=== PATIENT | female | born 1970 | race Caucasian/White ===

== ENCOUNTER 2017-03-01 13:57 | Emergency (ER) | payer OTHER ==
[2017-03-01] MEDS ORDERED: HYDROCODONE/APAP 5/325 TAB PO ONE (14:18)
[2017-03-01] MEDS ORDERED: TDAP ADULT 0.5 ML INJ (BOOSTRIX) IM ONE (14:18)
--- NOTE | 2017-03-01 14:29 | EDPHY ---
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 The bed fell, striking her on the top of the scalp. She sustained a abrasion versus laceration on top of the scalp. She has a headache in the area of the injury. She has had some dizziness and nausea. No loss of conscious. No neck pain of any kind. No vomiting. Some nausea. No injury anywhere else on her person. Worse with any kind of palpation or movement. No radiating pain. No injury elsewhere. Uncertain when her last tetanus shot was. No other associated complaints or modifying factors. All information and examination were performed with the aid of the [facility] certified Polish hvac manager. REVIEW OF SYSTEMS: Ten systems reviewed and are negative unless otherwise noted in the HPI PAST MEDICAL HISTORY: Denies any medical history other than asthma SOCIAL HISTORY: Nonsmoker. Works at [employer] FAMILY HISTORY: Noncontributory EXAMINATION General Appearance: Alert, no distress Head: normocephalic. No Sorenson sign. No raccoon eyes. There is a hematoma on the top of the scalp with associated abrasion versus laceration. Dried blood obscures the view. Eyes: Pupils equal and round, no conjunctival pallor or injection. EOMs intact. ENT, Mouth: Mucous membranes moist. Airway widely patent Neck: Normal inspection, supple, non-tender. Painless range of motion all planes. No crepitus, step-off or deformity Respiratory: Lungs are clear to auscultation Cardiovascular: Regular rate and rhythm. No murmur Gastrointestinal: Abdomen is soft and nontender Back: non-tender, no bony abnormalities Neurological: A&O, nonfocal, normal gait Skin: Warm and dry, no rash. Abrasion to the top of the scalp over hematoma. No exposure of the galea Extremities: Nontender, no pedal edema Psychiatric: Mood and affect normal DIFFERENTIAL DIAGNOSES: Including but not limited to closed head injury, hematoma, laceration, abrasion , intracranial hemorrhage, skull fracture MDM: 2:20 p.m. Blunt trauma to the head with headache, hematoma, dizziness and nausea. There is a superficial abrasion versus laceration on the top of the scalp. We will irrigate to delineate. I have ordered CT scan of the head given the symptomatic closed headache post trauma. She does not take any blood thinners. She is neuro intact. Tetanus will be updated here in the emergency department 2:45 p.m. Wound has been irrigated and re-evaluated. There is a very superficial, stellate laceration that is 1.5 cm. This does not go through the entire epidermal and dermal layers. Minimal bleeding. No foreign body. I do not feel that this warrants staple repair as I cannot distract the wound margins. 3:30 p.m. Notified by radiologist. CT scan of the head is unremarkable for any acute findings. 3:40 p.m. Patient is feeling well. Minimal headache. No vomiting. No change in vision. Discharged home with wound care instructions. Follow up with worker's compensation [facility]. Tylenol and ibuprofen for pain as needed. Return to ER for worsening pain, vomiting, neck pain SUPERVISION: Patient was evaluated in conjunction with the supervising physician. Please see their note for details. 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 Limitations: No limitations - Personal History LMP (Females 10-55): 22-28 Days Ago Current Tetanus/Diphtheria Vaccine: Unsure Current Tetanus Diphtheria and Acellular Pertussis (TDAP): Unsure - Medical/Surgical History Hx Asthma: Yes Hx Chronic Respiratory Disease: No Hx Diabetes: No Hx Cardiac Disease: No Hx Renal Disease: No Hx Cirrhosis: No Hx Alcoholism: No Hx HIV/AIDS: No Hx Splenectomy or Spleen Trauma: No Other PMH: surgery-foot - Social History Smoking Status: Never smoked Constitutional: Initial Vital Signs Temperature (C) 97.7 F 03/01/17 13:59 Heart Rate 71 03/01/17 13:59 Respiratory Rate 16 03/01/17 13:59 Blood Pressure 144/90 H 03/01/17 13:59 O2 Sat (%) 91 L 03/01/17 13:59 O2 Delivery Mode Room Air Allergies/Adverse Reactions: aspirin Allergy (Intermediate, Verified 12/19/14 13:18) CHEST PAIN Home Medications: Medication Instructions Recorded Albuterol 5 mg/ml INH [Proventil] 2.5 mg IH QID #1 btl 12/19/14 Medical Decision Making - Diagnostics Imaging Results: Imaging Impressions Head CT 03/01/17 14:18 Impression: Scalp injury with radiopaque debris in the right vertex. No evidence for skull fracture or acute intracranial abnormality. Results called and discussed with Torsten Trent PA-C on March 01, 2017 at 1516 hours. - Data Points Medications Given: Discontinued Medications Hydrocodone Bitart/Acetaminophen ([place] 5/325) 1 tab PO EDNOW ONE Stop: 03/01/17 14:19 Last Admin: 03/01/17 14:24 Dose: 1 tab Diphtheria/Tetanus/Acell Pertussis (Boostrix) 0.5 ml IM .ONCE ONE Stop: 03/01/17 14:19 Last Admin: 03/01/17 14:24 Dose: 0.5 ml Departure - Departure Disposition: Home, Routine, Self-Care Clinical Impression: Scalp abrasion Qualifiers: Encounter type: initial encounter Qualified Code(s): S00.01XA - Abrasion of scalp, initial encounter Closed head injury Qualifiers: Encounter type: initial encounter Qualified Code(s): S09.90XA - Unspecified injury of head, initial encounter Condition: Good Instructions: Head Injury (ED), Concussion (ED), Laceration Without Closure (ED ) Additional Instructions: 1. Tylenol 500-1000 mg every 6 hours as needed for pain 2. Ibuprofen 600-800 mg every 8 hours as needed for pain 3. Follow up with worker's compensation Clinic 4. Return to ER for any worsening headache, vomiting, visual change, neck pain or stiffness Referrals: Patient,NotPresent [Primary Care Provider] - As per Instructions Gerard Jackson MD [[facility] Primary Care Provider] - As per Instructions Stand Alone Forms: Work Comp Follow Up Print Language: Polish
[2017-03-01 15:55] VITALS: BP 131/77; PULSE 65; RESP 18; TEMP 98.2; O2SAT 97
== END 2017-03-01 15:54 | disposition home or self-care (01) ==
LOC: EDUNIT#
DX: S00.01XA Abrasion of scalp, initial encounter (principal); J45.909 Unspecified asthma, uncomplicated; W22.8XXA Striking against or struck by other objects, initial encounter

== ENCOUNTER 2018-06-03 23:57 | Emergency (ER) | payer OTHER ==
--- NOTE | 2018-06-04 00:15 | EDPHY ---
H & P Stated Complaint: TOOK 30MG MELOXICAM ACCIDENTLY, NOW NUMBNESS LEFT FACE 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 Exam Limitations: No limitations - Personal History Current Tetanus/Diphtheria Vaccine: Yes - Medical/Surgical History Hx Asthma: Yes Hx Chronic Respiratory Disease: No Hx Diabetes: No Hx Cardiac Disease: No Hx Renal Disease: No Hx Cirrhosis: No Hx Alcoholism: No Hx HIV/AIDS: No Hx Splenectomy or Spleen Trauma: No Other PMH: surgery-foot, TENDONITIS - Social History Smoking Status: Never smoked Time Seen by Provider: 06/04/18 00:11 HPI/ROS: HPI: This is a 48-year-old female who presents with Chief Complaint: TOOK 30MG MELOXICAM ACCIDENTLY, NOW NUMBNESS LEFT FACE Location: Body Quality: Accidental ingestion Duration: 2 hr prior to arrival Signs and Symptoms: No cough, no chest pain, + left face numbness, no weakness , no radiation, no headache, no aphasia Timing: Acute Severity: Mild Context: Patient has a history of foot surgery in tendinitis and takes meloxicam 15 mg daily. She presents this evening with taking 50 mg tablet at 9: 00 p.m. And then accidentally taking another 15 mg tablet at 10 pm. Patient reports that she feels extremely anxious and worried about overdose of the medication. When she arrived in the emergency room she started to feel left- sided facial numbness but denies any weakness, drooping, headache, aphasia, radiation. Patient denies any nausea, vomiting, abdominal pain, hematemesis, blood in stool. Modifying Factors: None Comment: ROS: A comprehensive 10 system review of systems is otherwise negative aside from elements mentioned in the history of present illness. MEDICAL/SURGICAL/SOCIAL HISTORY: Medical history: Tendinitis Surgical history: Foot surgery Social history: Family history noncontributory. CONSTITUTIONAL: Anxious, overweight, female, awake and alert, no obvious distress HEENT: Atraumatic and normocephalic, PERRL, EOMI. Nares patent; no rhinorrhea; no nasal mucosal edema. Tympanic membranes clear. Oropharynx clear, no exudate and moist pink mucosa. Airway patent. No lymphadenopathy. No meningismus. Cardiovascular: Normal S1/S2, regular rate, regular rhythm, without murmur rub or gallop. PULMONARY/CHEST: Symmetrical and nontender. Clear to auscultation bilaterally. Good air movement. No accessory muscle usage. ABDOMEN: Soft, nondistended, nontender, no rebound, no guarding, no peritoneal signs, no masses or organomegaly. No CVAT. EXTREMITIES: 2/2 pulses, strength 5/5, no deformities, no clubbing, no cyanosis or edema. NEUROLOGICAL: no focal neuro deficits. GCS 15. SKIN: Warm and dry, no erythema. no rash. Good capillary refill. (Beatriz Velasco) Constitutional: Initial Vital Signs Temperature (C) 36.4 C 06/04/18 00:06 Heart Rate 70 06/04/18 00:06 Respiratory Rate 18 06/04/18 00:06 Blood Pressure 174/108 H 06/04/18 00:06 O2 Sat (%) 96 06/04/18 00:06 O2 Delivery Mode Room Air Allergies/Adverse Reactions: aspirin Allergy (Intermediate, Verified 06/04/18 00:04) CHEST PAIN oxycodone Allergy (Verified 06/04/18 00:05) Home Medications: Medication Instructions Recorded Meloxicam 06/04/18 traZODone 06/04/18 Medical Decision Making ED Course/Re-evaluation: Vital signs reviewed upon arrival and shows elevated blood pressure. Placed on cardiac cath rn. 0015: Poison control called. Advised no labs. Advised supportive care. Does not recommend salicylates or laboratory testing. PO trial. monitor GI symptoms. EKG my read and with attending shows normal sinus rhythm with a rate of 60 beats per minute. No acute ischemic changes. No arrhythmias. 0020: Given PO Ativan 1 mg and GI cocktail. 0100: Reassessed patient who reports complete relief of symptoms. Blood pressure stable at discharge. No signs of CVA/ACS Zofran prepack given at discharge. This patient was seen under the supervision of my secondary supervising physician. I evaluated care for this patient independently. Discussed this patient with Dr. Baxter. (Beatriz Velasco) PHYSICIAN DOCUMENTATION: The patient was evaluated and managed by the Physician Material Loader. My co- signature indicates that I have reviewed this chart and I agree with the findings and plan of care as documented. I am the secondary supervising physician. (Vanessa Baxter) Differential Diagnosis: Differential diagnosis includes but is not limited to anxiety, NSAID overdose. (Beatriz Velasco) - Data Points Medications Given: Discontinued Medications Al Hydroxide/Mg Hydroxide (Maalox Susp) 30 ml PO ONCE ONE Stop: 06/04/18 00:20 Last Admin: 06/04/18 01:15 Dose: Not Given Hyoscyamine Sulfate (Levsin, Hyomax-Sl) 0.25 mg PO ONCE ONE Stop: 06/04/18 00:20 Last Admin: 06/04/18 01:15 Dose: Not Given Lidocaine (Lidocaine 2% Viscous) 15 ml PO ONCE ONE Stop: 06/04/18 00:20 Last Admin: 06/04/18 01:15 Dose: Not Given Lorazepam (Ativan) 1 mg PO EDNOW ONE Stop: 06/04/18 00:20 Last Admin: 06/04/18 00:24 Dose: 1 mg Ondansetron HCl (Zofran Odt 4 Mg Prepack#2) 1 btl TAKEHOME EDNOW ONE Stop: 06/04/18 01:07 Last Admin: 06/04/18 01:11 Dose: 1 btl Departure - Departure Disposition: Home, Routine, Self-Care Clinical Impression: Accidental medication overdose Qualifiers: Encounter type: initial encounter Qualified Code(s): T50.901A - Poisoning by unspecified drugs, medicaments and biological substances, accidental ( unintentional), initial encounter Condition: Good Instructions: Ondansetron (By mouth), Meloxicam (By mouth) Additional Instructions: Consume a minimum of 8-10 glasses of water or electrolyte fluid replacement drinks that include Gatorade, Powerade, Pedialyte. Eat a bland diet for the next 48 hours and then slowly advance as tolerated. Take Zofran 1 tab every 4 hours as needed for nausea, vomiting. Return to the Emergency Room if symptoms do not resolve in the next 48-72 hours , you spike a fever > 102 F, or experience intractable abdominal pain/nausea/ vomiting. Referrals: [facility],. [Clinic] - 3-4 days, if not improved
[2018-06-04] MEDS ORDERED: MAG HYDROX/AL HYDROX/SIMETH 30 ML UDCUP PO ONE (00:19)
[2018-06-04] MEDS ORDERED: LIDOCAINE 2% VISCOUS 15 ML UDCUP PO ONE (00:19)
[2018-06-04] MEDS ORDERED: LORazepam 1 MG TAB PO ONE (00:19)
[2018-06-04] MEDS ORDERED: HYOSCYAMINE SULFATE 0.125 MG TAB PO ONE (00:19)
[2018-06-04 00:58] VITALS: BP 135/87
[2018-06-04] MEDS ORDERED: ONDANSETRON 4MG PREPACK#2 BTL TAKEHOME ONE (01:06)
--- NOTE | 2018-06-04 02:04 | CPEKG ---
Test Reason : OPEN Blood Pressure : / mmHG Vent. Rate : 068 BPM Atrial Rate : 067 BPM P-R Int : 155 ms QRS Dur : 098 ms QT Int : 397 ms P-R-T Axes : 040 010 024 degrees QTc Int : 423 ms Sinus rhythm Abnormal R-wave progression, early transition Confirmed by Vanessa Baxter ([id number]) on 06/04/2018 2:03:37 AM Referred By: Confirmed By:Vanessa Baxter
== END 2018-06-04 01:15 | disposition home or self-care (01) ==
DX: R20.2 Paresthesia of skin (principal); T39.391A Poisoning by other nonsteroidal anti-inflammatory drugs [NSAID], accidental (unintentional), initial encounter